=== PATIENT | female | born 1995 | race Asian ===

== ENCOUNTER 2016-11-15 18:38 | Emergency (ER) | payer OTHER ==
[2016-11-15] MEDS ORDERED: Ketorolac INJ* 60 MG/2 ML VIAL IM ONE (19:02)
[2016-11-15] MEDS ORDERED: Ondansetron ODT TAB* 4 MG PO ONE (19:02)
--- NOTE | 2016-11-15 19:10 | UC ---
Cardiac HPI - HPI Summary HPI Summary: Patient received an electric shock while repairing an outlet. she started getting dizzy and having CP mid sternal sharp pains, denies any curtis, vision changes or papitations - History of Current Complaint Chief Complaint: UCChestPain Stated Complaint: CHEST PAIN Hx Obtained From: Patient Onset/Duration: Sudden Onset, Lasting Minutes Timing: Constant Initial Severity: Moderate Current Severity: Moderate Chest Pain Location: Mid Sternal Character: Sharp/Stabbing - intermittant Aggravating: Nothing Alleviating: Position Associated Signs & Symptoms: Positive: Anxiety, Nausea/Vomiting - Allergy/Home Medications Allergies/Adverse Reactions: Allergies Allergy/AdvReac Type Severity Reaction Status Date / Time Iodine Allergy unk Verified 11/15/16 19:11 PMH/Surg Hx/FS Hx/Imm Hx Previously Healthy: Yes Endocrine History Of: Denies: Diabetes, Thyroid Disease Cardiovascular History Of: Denies: Cardiac Disorders, Hypertension Respiratory History Of: Denies: COPD, Asthma GI/ History Of: Denies: Ulcer - Surgical History Surgical History: Yes Surgery Procedure, Year, and Place: durmoid cyst 12/2014, - Family History Known Family History: Negative: Cardiac Disease, Hypertension - Social History Alcohol Use: Occasionally Substance Use Type: None Smoking Status (MU): Never Smoked Tobacco Review of Systems Constitutional: Negative Skin: Negative Eyes: Negative ENT: Sore Throat Respiratory: Negative Cardiovascular: Chest Pain Gastrointestinal: Negative Genitourinary: Negative Motor: Negative Neurovascular: Negative Musculoskeletal: Negative Neurological: Headache Psychological: Anxious All Other Systems Reviewed And Are Negative: Yes Physical Exam Triage Information Reviewed: Yes Appearance: Well-Appearing, Well-Nourished, Pain Distress Vital Signs: Initial Vital Signs Temp 99.1 F 11/15/16 18:46 Pulse 83 11/15/16 18:46 Resp 17 11/15/16 18:46 BP 125/84 11/15/16 18:46 Pulse Ox 99 11/15/16 18:46 Vital Signs Reviewed: Yes Eye Exam: Normal Eyes: Positive: Conjunctiva Clear ENT: Positive: Hearing grossly normal, Pharyngeal erythema, TMs normal Dental Exam: Normal Neck exam: Normal Neck: Positive: Supple, Nontender, No Lymphadenopathy Respiratory Exam: Normal Respiratory: Positive: Chest non-tender, Lungs clear, Normal breath sounds Cardiovascular Exam: Normal Cardiovascular: Positive: RRR, No Murmur, Pulses Normal Abdominal Exam: Normal Abdomen Description: Positive: Nontender, No Organomegaly, Soft Bowel Sounds: Positive: Present Musculoskeletal Exam: Normal Musculoskeletal: Positive: Strength Intact, ROM Intact, No Edema Neurological Exam: Other - neg rhomberg, PERRLA, EOMI, die sinker stretgth is equal and cranial nerves intact. Psychological Exam: Normal Skin Exam: Normal Skin: Positive: Other - no buring or lesions present - Assessment/Plan Course Of Treatment: hx obtained, exam performed, meds reviewed EKG shows sinus mirta HR 54, repeat Apical pulse was 84. patient complaining of nausea and headache. given toradol and zofran. - Differential Diagnoses - Chest Pain Differential Diagnosis/HQI/PQRI: ACS - Differential Diagnoses - Hypertension Differential Diagnosis/HQI PQRI: Hypertension - Clinical Impression Provider Diagnoses: dizzyness. nausea. pharyngitis. headache Discharge - Discharge Plan Condition: Stable Disposition: HOME Patient Education Materials: Acute Headache (ED) Additional Instructions: 1. you received toradol, do not take any ibuprofen until 2 am. 2. Rest and increase fluid intake 3. Follow up with any worsening symtpoms.
== END 2016-11-15 19:34 | disposition home or self-care (01) ==
LOC: UCEAST 18:38
DX: R42 Dizziness and giddiness (principal); R11.0 Nausea; J02.9 Acute pharyngitis, unspecified; R51 Headache
CPT/HCPCS: 93005; 96372; 99201; A9270-GY; G0463; J1885

== ENCOUNTER 2018-05-12 15:31 | Emergency (ER) | payer OTHER ==
[2018-05-12 16:09] VITALS: BP 123/81
--- NOTE | 2018-05-12 17:29 | UC ---
Minor Trauma HPI - HPI Summary HPI Summary: The patient is a 23-year-old female Fell after exiting her apartment. This injury occurred yesterday. She was on her deck and slipped on some wet leaves striking her back and the back of her head on some stairs. She denies any loss of consciousness. She has a mild left-sided headache. She feels a little dizzy. Her right hemipelvis is sore and swollen and bruised. She denies any neck pain. Not had any nausea vomiting or diarrhea. - History of Current Complaint Chief Complaint: UCTrauma Stated Complaint: ANKLE, SHOULDER,HIP, AND HEAD INJURY Time Seen by Provider: 05/12/18 16:43 Hx Last Menstrual Period: 05/12/18 Onset/Duration: Sudden Onset, Lasting Hours Onset Of Pain: Immediate Severity Initially: Severe Severity Currently: Moderate Pain Intensity: 6 Pain Scale Used: 0-10 Numeric Mechanism Of Injury: Fall From A Standing Position Aggravating Factor(s): Ambulation Alleviating Factor(s): Ice, OTC Meds, Rest Associated Signs And Symptoms: Positive: Ecchymosis, Swelling Body - Head: 1 - tender 2 - tender/ecchymotic/swollen - Allergies/Home Medications Allergies/Adverse Reactions: Allergies Allergy/AdvReac Type Severity Reaction Status Date / Time Iodinated Contrast- Oral and Allergy Vomiting Verified 05/12/18 15:59 IV Dye Home Medications: Home Medications Biotin 1,000 mcg PO DAILY 05/12/18 [History Confirmed 05/12/18] Norethindrone/Eth Est 1.12/02NF [Junel 1.12/02 (NF)] 1 tab PO DAILY 05/12/18 [ History Confirmed 05/12/18] PMH/Surg Hx/FS Hx/Imm Hx Previously Healthy: Yes - Surgical History Surgical History: Yes Surgery Procedure, Year, and Place: durmoid cyst 12/2014 - Family History Known Family History: Negative: Cardiac Disease, Hypertension - Social History Alcohol Use: Occasionally Substance Use Type: None Smoking Status (MU): Never Smoked Tobacco Review of Systems Skin: Bruising Musculoskeletal: Arthralgia, Myalgia Neurological: Headache All Other Systems Reviewed And Are Negative: Yes Physical Exam Triage Information Reviewed: Yes Appearance: Well-Appearing, No Pain Distress, Well-Nourished Vital Signs: Initial Vital Signs Temp 97.6 F 05/12/18 16:00 Pulse 65 05/12/18 16:00 Resp 16 05/12/18 16:00 BP 123/81 05/12/18 16:00 Pulse Ox 100 05/12/18 16:00 Vital Signs Reviewed: Yes Eyes: Positive: Conjunctiva Clear, Other: - eomi/perrl ENT: Positive: Hearing grossly normal, Uvula midline. Negative: Nasal congestion, Nasal drainage, Tonsillar swelling, Tonsillar exudate, Trismus, Muffled voice, Hoarse voice Dental Exam: Normal Neck: Positive: Supple, Nontender, No Lymphadenopathy Respiratory: Positive: Lungs clear, Normal breath sounds, No respiratory distress, No accessory muscle use Cardiovascular: Positive: RRR, No Murmur Musculoskeletal: Positive: ROM Intact, No Edema Neurological: Positive: Alert Psychological Exam: Normal Skin Exam: Normal Diagnostics - Radiology No standard instances Radiology Interpretation Completed By: Radiologist Summary of Radiographic Findings: no fx or pelvis, CT of brain (-) Minor Trauma Course/Dx - Course Course Of Treatment: pt refused CT of brain...initially. now at 5:30 desires one - Differential Dx/Diagnosis Provider Diagnoses: hematoma(right buttock). scalp contusion Discharge - Sign-Out/Discharge Documenting (check all that apply): Patient Departure All imaging exams completed and their final reports reviewed: Yes - Discharge Plan Condition: Stable Disposition: HOME Patient Education Materials: Hematoma (ED), Head Injury (ED) Referrals: Cristiane Hoyos DO [Primary Care Provider] - 5 Days (if not better) Additional Instructions: rest ice tylenol or advil - Billing Disposition and Condition Condition: STABLE Disposition: Home
[2018-05-12] MEDS ORDERED: Acetaminophen TAB* 325 MG PO ONE (17:31)
== END 2018-05-12 18:09 | disposition home or self-care (01) ==
LOC: UCEAST 15:31
DX: S30.0XXA Contusion of lower back and pelvis, initial encounter (principal); S00.03XA Contusion of scalp, initial encounter; W01.198A Fall on same level from slipping, tripping and stumbling with subsequent striking against other object, initial encounter; Y92.017 Garden or yard in single-family (private) house as the place of occurrence of the external cause
CPT/HCPCS: 70450; 72170; 99212; A9270-GY; G0463